=== PATIENT | female | born 1940 | race Caucasian/White ===

== ENCOUNTER → 2016-06-20 | Outpatient (CLI) | payer MEDICARE | END | disposition home or self-care (01) | LOC: GMA 14:30 | PROVIDERS: ATTEND Nurse Practitioner Family | DX: R06.02 Shortness of breath (principal); R07.2 Precordial pain ==

== ENCOUNTER → 2016-09-01 | Outpatient (CLI) | payer MEDICARE | LOC: GMA 13:48 | PROVIDERS: ATTEND Nurse Practitioner Family | DX: N39.0 Urinary tract infection, site not specified (principal) ==

== ENCOUNTER → 2016-12-01 | Outpatient (CLI) | payer MEDICARE | END | disposition home or self-care (01) | LOC: GMA 13:00 | PROVIDERS: ATTEND Physician Assistant | DX: N39.0 Urinary tract infection, site not specified (principal) ==

== ENCOUNTER → 2017-04-26 | Outpatient (CLI) | payer MEDICARE ==
--- NOTE | 2017-04-26 16:13 | MRI ---
EXAM DESCRIPTION: Brain w/o Contrast: MRI. CLINICAL HISTORY: MEMORY LOSS COMPARISON: None. TECHNIQUE: Multiplanar, high-field MRI unit, multiple diffusion sequences, multiple conventional sequences without contrast. FINDINGS: Multiple small foci of bright FLAIR and T2-weighted signal in the periventricular white matter and holly-white matter junctions of the cerebral hemispheres. Bilaterally symmetric. Relative sparing of the bilateral occipital and temporal lobes . Smaller bright foci anterior bilaterally symmetric in the basal ganglia. No hemorrhage, no cerebral edema, no mass-effect. Normal signal in the brainstem and cerebellar hemispheres. No hemorrhage, no cerebral edema, no mass-effect. Concordance of the diffusion and non-diffusion sequences with no diffusion restriction. Cortical sulci, ventricles, and other CSF spaces, and the subdural spaces are physiologic for the patient's age. Also physiologic appearance of the bilateral cerebellar folia. No effacement or displacement. No midline shift. No extra-axial hemorrhage. Normal flow signal void in the major vessels of the [place], and the venous sinuses. IACs are symmetric bilaterally. Normal signal in the bilateral mastoid air cells. No mass effect in the bilateral cerebellopontine angles. Pituitary gland occupies most of the sella. Base of the cerebellar tonsils is above the foramen magnum. Mucoperiosteal thickening involving most of the superior and posterior paranasal sinuses. Minimal involvement of the maxillary antra. The bony calvarium is intact. IMPRESSION: 1. 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 No mass effect hemorrhage cerebral edema or shift. Less likely causes of focal white matter abnormalities in this patient would be demyelinating process, migraine headaches, vasculitis, or infectious process. 2. Normal noncontrast MRI diffusion scan with no evidence of acute or subacute infection or ischemia. 3. Mild chronic paranasal sinusitis. Electronically signed by: Tommy Cook MD 04/26/2017 4:12 PM [facility]
== END | disposition home or self-care (01) ==
LOC: MRI 10:00
PROVIDERS: ATTEND Family Medicine
DX: R41.82 Altered mental status, unspecified (principal); F03.90 Unspecified dementia, unspecified severity, without behavioral disturbance, psychotic disturbance, mood disturbance, and anxiety

== ENCOUNTER → 2017-08-22 | Outpatient (CLI) | payer MEDICARE | LOC: GMAM 11:49 | PROVIDERS: ATTEND Family Medicine | DX: M79.609 Pain in unspecified limb (principal) ==

== ENCOUNTER → 2018-08-09 | Outpatient (CLI) | payer MEDICARE ==
--- NOTE | 2018-08-12 09:23 | CT ---
CT NECK ANGIOGRAPHY WITH IV CONTRAST HISTORY: 77 years Female CAROTID ARTERY STENOSIS COMPARISON: Carotid ultrasound dated January 07, 2009. TECHNIQUE: Helical tomographic images of the neck were obtained after the intravenous administration of 100 cc of Isovue-370 utilizing an angiogram protocol. Multiplanar MIP and 3D reconstructions were created. Coronal and sagittal reformatted images were also provided. This exam was performed according to our departmental dose-optimization program, which includes automated exposure control, adjustment of the mA and/or kV according to patient size and/or use of iterative reconstruction technique. FINDINGS: Diagnostic quality: Adequate. Aorta/arch branch vessels: Mild atherosclerotic burden. Normal arch branch anatomy. Right carotid system: Moderate atherosclerotic disease in the right carotid bulb. There is approximately 12% narrowing at the origin of the right ICA (NASCET criteria). No significant flow-limiting stenosis elsewhere within the right carotid system. Left carotid system: Moderate atherosclerotic disease in the left carotid bulb. No significant flow-limiting stenosis. Right vertebral: No flow-limiting stenosis. Left vertebral: No flow-limiting stenosis. REMAINDER OF THE EXAM Included orbits, paranasal sinuses, mastoid air cells are unremarkable. Included intracranial structures are unremarkable. [place] appears complete. Multiple hypoattenuating nodules are demonstrated within the left thyroid lobe, the largest measuring up to approximately 2.1 cm. Submandibular and parotid glands are unremarkable. No lymphadenopathy detected. Aerodigestive tract appears widely patent. No fluid collection or mass observed soft tissues of the neck. Scoliotic curvature and severe multilevel degenerative changes are demonstrated in the cervical spine, with probable severe central canal and neuroforaminal narrowing at multiple levels. IMPRESSION: [id number] atherosclerotic burden, predominantly within the carotid bulbs. Approximately 12% narrowing of the origin of the right cervical ICA (NASCET criteria). No flow-limiting stenosis of the left ICA. Multiple left thyroid nodules, the largest measuring up to 2.1 cm in diameter. Dedicated thyroid ultrasound recommended if not previously evaluated. Severe multilevel degenerative changes with probable severe central canal and neuroforaminal stenosis in the cervical spine. Electronically signed by: Sandro Anderson MD 08/12/2018 9:20 AM CDT
== END ==
LOC: CT 11:08
PROVIDERS: ATTEND Family Medicine
DX: I65.23 Occlusion and stenosis of bilateral carotid arteries (principal); E04.2 Nontoxic multinodular goiter; M50.90 Cervical disc disorder, unspecified, unspecified cervical region

== ENCOUNTER → 2018-08-14 | Outpatient (CLI) | payer MEDICARE | LOC: GMAM 16:48 | PROVIDERS: ATTEND Family Medicine | DX: E04.1 Nontoxic single thyroid nodule (principal) ==

== ENCOUNTER → 2018-12-27 | Outpatient (CLI) | payer MEDICARE | LOC: GMAM 13:42 | PROVIDERS: ATTEND Family Medicine | DX: R30.0 Dysuria (principal); E78.2 Mixed hyperlipidemia; I10 Essential (primary) hypertension; E78.1 Pure hyperglyceridemia ==

== ENCOUNTER → 2019-09-10 | Outpatient (CLI) | payer MEDICARE ==
--- NOTE | 2019-09-11 10:55 | MRI ---
EXAM DESCRIPTION: Lumbar Spine w/o Contrast : Magnetic Resonance Imaging. CLINICAL HISTORY: RADICULOPATHY COMPARISON: MRI scan lumbar spine November 2017. TECHNIQUE: Multiplanar, multiple standard sequences, non contrast MRI, lumbar spine. FINDINGS: L5-S1: The disc is well visualized on axial T2 series 501, image 3. No evidence rudimentary L5-S1 disc with anterior disc space essentially closed and anterior bulging and spurs of the disc remnant. Posterior disc remnant with minimal bulging. Degenerative hypertrophy of the posterior flavum ligaments and facet joints (canal elements). Moderate to severe narrowing of the bilateral foramina which has improved on the left and is stable on the right. Transitional L5 partially sacralized L4-L5: Disc desiccation and mild to moderate disc space loss. Grade 2 anterolisthesis 18.1 mm. Minimal posterior disc bulge. Posterior disc is uncovered with superior bulge. Moderate degenerative hypertrophy of the canal elements. AP canal diameter 6.8 mm. Left subarticular recess narrowing. Moderate left side spondylosis and disc osteophyte bulge into the left foramen with stenosis and impingement left L4 nerve. Mild narrowing right foramen. 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 Stable since the prior study. L3-L4: Disc desiccation posterior disc space loss. Grade 1 anterolisthesis 3 mm. Posterior disc uncovered and bulging. Minimal anterior bulge. Marked degenerative hypertrophy of the nail elements with AP canal diameter 6 mm. Left foramen moderate to severe narrowing and borderline right foraminal stenosis, stable since the prior study. L2-L3: Moderate to advanced spondylosis right side with moderate to severe right foraminal narrowing. 2 mm grade 1 retrolisthesis. Posterior right disc and spur bulge with right subarticular recess stenosis. Moderate degenerative hypertrophy of the canal elements. AP canal diameter 8 mm. No change from the prior study. L1-L2: Moderate disc desiccation involving the entire disc space with anterior bulging and endplate ridging. Posterior right disc protrusion with spur 6 mm impressing on the right ventral cord with right subarticular recess stenosis and compromise of the right L3 nerve. Degenerative hypertrophy of the canal elements more right than left. AP canal diameter 8.4 mm. Right foraminal stenosis. Moderate left foraminal narrowing. No interval change. T12-L1: Mild to moderate disc space loss with anterior bulging and spurs. Schmorl's nodes superior L1 endplate. Moderate to advanced endplate reactive changes on the left and extending anteriorly. Posterior broad-based disc-T12 osteophyte bulge with grade 1 retrolisthesis 4.5 mm. Bilateral narrowing of the subarticular recesses. Mild degenerative hypertrophy of the bilateral canal elements. AP canal diameter 13 mm. Bilateral mild foraminal narrowing. Conus terminates at L1. No change from the prior study. L1-L3 levoscoliosis. Paravertebral soft tissues with muscular atrophy. Bilateral renal cysts. Complicated cyst on the posterior cortex of the mid left kidney versus mass. Mid been present on the prior study.. Distal cord normal signal and caliber. Otherwise normal marrow signal in the remaining vertebral bodies and the posterior elements. Vertebral bodies are not compressed at any level. IMPRESSION: 1. Multiple levels of spondylosis, disc desiccation and disc space loss, disc bulging, disc osteophyte complex encroachment on foramina and spinal canal, and hypertrophic degeneration in the facet joints and posterior ligaments. Transitional sacralized L5 segment with rudimentary L5-S1 disc. 2. Subarticular recess stenosis, mild to moderate canal stenosis, and right foraminal stenosis stable at L1-L2. 3. Right posterior disc spur protrusion and L2-3 with subarticular recess stenosis and mild/moderate canal stenosis stable since the prior study. 4. Multifactorial severe canal stenosis at L3-4 and L4-5 stable since the prior study. 5. Grade 2 anterolisthesis L4-L5 and subarticular recess stenosis and left foraminal stenosis with no interval change. Electronically signed by: Tommy Cook MD 09/11/2019 10:54 AM CDT
== END ==
LOC: MRI 11:00
PROVIDERS: ATTEND Anesthesiology Pain Medicine
DX: M47.27 Other spondylosis with radiculopathy, lumbosacral region (principal); M53.87 Other specified dorsopathies, lumbosacral region; M43.16 Spondylolisthesis, lumbar region; M51.36 Other intervertebral disc degeneration, lumbar region; M51.86 Other intervertebral disc disorders, lumbar region; M48.061 Spinal stenosis, lumbar region without neurogenic claudication; M46.96 Unspecified inflammatory spondylopathy, lumbar region; M25.78 Osteophyte, vertebrae; M24.28 Disorder of ligament, vertebrae; G89.29 Other chronic pain; F40.231 Fear of injections and transfusions; Z68.28 Body mass index [BMI] 28.0-28.9, adult; Z79.891 Long term (current) use of opiate analgesic

== ENCOUNTER → 2019-10-03 | Outpatient (CLI) | payer MEDICARE ==
--- NOTE | 2019-10-03 15:20 | US ---
EXAM DESCRIPTION: Renal: Ultrasound. CLINICAL HISTORY: 78 years Female ABNORMAL FINDINGS ON DIAGNOSTIC IMAGING OF MUSCULOSKELETAL SYS COMPARISON: None TECHNIQUE: Transcutaneous scanning: Two-dimensional and Doppler modes. FINDINGS: Right kidney measures 8.4 x 4.5 X 4.5 cm; volume 88.4 mm. Mid-renal cortical thickness 11 mm. . Heterogeneous increased echogenicity. Mild hydronephrosis Lobulated contour of the kidney with no perinephric fluid. Cortical cyst measures 1.6 cm and contains a 6 mm echogenic calcification in the wall versus a 6 mm adjacent stone with acoustic shadowing. Other smaller cysts. Normal vascularity. Proximal ureter not seen.. Left kidney measures 8.6 x 4.1 x 4.9 cm; volume 89.9 mL. Mid-renal cortical thickness normal. Heterogeneous cortical echogenicity No hydronephrosis. Cortical cyst measures 3.3 cm. Bilobed cyst measures 2.9 x 1.5 cm. No echogenic stones. Lobulated contour of the kidney with no perinephric fluid. Normal vascularity.. Proximal ureter not seen. Urinary bladder was visualized. Volume 19.7 mL. Ureteral jet in the bladder not seen by Doppler no voiding. Abdominal aorta: Normal caliber of the proximal segment 1.7 cm down to the bifurcation which is 1.1 cm. IMPRESSION: 1. 6 mm stone in the right kidney with hydronephrosis. Multiple cysts. Cortical thickness and echogenicity could be related to age or medical renal disease. 2. Multiple cysts in left kidney with no stones or hydronephrosis. 3. Minimal urine in the urinary bladder. No voiding. Normal caliber of the abdominal aorta. Electronically signed by: Tommy Cook MD 10/03/2019 3:19 PM CDT
== END ==
LOC: US 11:04
PROVIDERS: ATTEND Anesthesiology Pain Medicine
DX: N13.30 Unspecified hydronephrosis (principal); N20.0 Calculus of kidney; N28.1 Cyst of kidney, acquired; N28.9 Disorder of kidney and ureter, unspecified

== ENCOUNTER → 2019-11-13 | Outpatient (CLI) | payer MEDICARE ==
--- NOTE | 2019-11-13 11:05 | CT ---
EXAM DESCRIPTION: CT ABDOMEN AND PELVIS WITHOUT AND WITH CONTRAST CLINICAL HISTORY: HYDRONEPHROSIS COMPARISON: None Available. TECHNIQUE: CT of the abdomen and pelvis are performed prior to and during IV bolus administration of nonionic contrast. Oral contrast media was not administered. This exam was performed according to our departmental dose-optimization program, which includes automated exposure control, adjustment of the mA and/or kV according to patient size and/or use of iterative reconstruction technique. FINDINGS: Left lung base unremarkable. Moderate eventration right hemidiaphragm with compressive atelectasis right lung base. Modest coronary artery calcification with small retrocardiac hiatal hernia. Noncontrast imaging demonstrates multiple bilateral renal cystic lesions with peripherally calcified gallstone noted within the gallbladder. Very subtle 1.5 cm low-density nodule posterior dome right lobe of the liver present. Extensive vascular calcification noted without aneurysm. Extensive diverticulosis of the left and right colon present. Liver normally enhances with a small subcentimeter benign cyst just posterior to the vena cava and a second tiny subcentimeter cyst medial segment left lobe of the liver. A hypodense 1.4 cm suspected solid nodule posterior dome of the right lobe of the liver is present. The finding is nonspecific and could represent small hemangioma or small solid solitary lesion. Correlation with any history of neoplasm recommended. Laminated 1.4 cm stone in the fundus of the gallbladder without wall thickening or ductal dilation noted. Normal enhancing pancreas with a couple of small pancreatic calcifications suggesting minimal changes of chronic pancreatitis without atrophy or distinct soft tissue density mass. No acute inflammation noted. Small normal adrenal glands. Small normal spleen. No abdominal ascites. Right kidney demonstrates normal cortical thickness with mild caliectasis and pelviectasis consistent with milder modest UPJ obstruction. No hydroureter noted. Two small benign cyst present posterior laterally mid right kidney and a small cortical renal cyst mid right kidney anteriorly. Left kidney demonstrates numerous simple 1.5-3 cm exophytic cyst arising from the lower pole left kidney posteriorly. Additional small subcentimeter upper pole cortical cyst also noted. Significant pelviectasis or caliectasis not apparent. Also noted on the left anteromedially somewhat exophytic from the lower pole is a irregular slightly thick walled and partially calcified and questionably septated 2.5 cm complex cyst with intermediate density. Complicated cyst or possibly a cystic neoplasm would should be considered. This lesion warrants further evaluation with MRI of the kidneys without and with contrast enhancement renal protocol. MR imaging of the dome of the right lobe of the liver can be performed at the same time. Small and large bowel caliber is normal. Extensive colonic diverticulosis noted. Obstruction or ileus is not apparent. Within the pelvis and anteverted uterus and normal-appearing bladder. Normal adnexal regions. No abdominal or pelvic ascites or free abdominal air noted. Anterior abdominal wall and inguinal regions unremarkable. Severe lumbar disc degenerative disease with vacuum phenomenon at every every level with minimal degenerative spondylolisthesis L4-5 and grade 1, borderline grade 2 spondylolisthesis L5-S1, both on a degenerative basis. An element of spinal canal stenosis in the lower lumbar spine should be considered. No bony destructive changes seen. Mild levoscoliosis of the spine noted. IMPRESSION: 1. Cholelithiasis without ductal dilation. 2. Small benign subcentimeter hepatic cyst with additional 1.4 cm indeterminate nodule posterior dome right lobe of the liver, possibly a solid solitary lesion. Further evaluation with MRI examination at the time of complex renal cyst evaluation recommended 3. Bilateral renal cystic disease benign in appearance and more extensive on the left except for a irregular 2.5 cm slightly thick-walled calcified cystic lesion anteromedial margin lower pole of the left kidney. MRI of the kidneys without and with contrast enhancement multiphase recommended for further characterization. 4. Normal left collecting system with modest pelviectasis and caliectasis right kidney suggesting an element of UPJ obstruction. No renal stone disease noted 5. Extensive colonic diverticulosis. 6. Multilevel advanced degenerative changes and levoscoliosis of the spine with grade 1 degenerative spondylolisthesis L5-S1 and to a lesser extent L4-5 7. Chronic eventration right hemidiaphragm with basilar lung compressive atelectasis Electronically signed by: Sam Tony MD 11/13/2019 11:04 AM CDT
== END ==
LOC: CT 10:00
PROVIDERS: ATTEND Urology
DX: Z01.812 Encounter for preprocedural laboratory examination (principal); N13.39 Other hydronephrosis; K80.20 Calculus of gallbladder without cholecystitis without obstruction; K76.89 Other specified diseases of liver; N28.1 Cyst of kidney, acquired; K57.30 Diverticulosis of large intestine without perforation or abscess without bleeding; M47.897 Other spondylosis, lumbosacral region; M41.9 Scoliosis, unspecified; M43.17 Spondylolisthesis, lumbosacral region; J98.6 Disorders of diaphragm; J98.11 Atelectasis

== ENCOUNTER → 2019-11-28 | Outpatient (CLI) | payer MEDICARE | END | disposition home or self-care (01) | LOC: MRI 10:00 | PROVIDERS: ATTEND Urology | DX: R31.0 Gross hematuria (principal); N28.1 Cyst of kidney, acquired ==